=== PATIENT | female | born 1970 | race Caucasian/White ===

== ENCOUNTER 2021-06-02 15:16 | Outpatient (CLI) | payer OTHER | END 2021-06-02 15:36 | disposition home or self-care (01) | LOC: MAMO-SONO 15:16 | PROVIDERS: ATTEND Obstetrics & Gynecology | DX: N64.4 Mastodynia (principal) ==

== ENCOUNTER 2022-08-12 08:59 | Outpatient (CLI) | payer OTHER | END 2022-08-12 09:00 | disposition home or self-care (01) | LOC: MAMO-SONO 08:59 | PROVIDERS: ATTEND Obstetrics & Gynecology Gynecology | DX: Z12.31 Encounter for screening mammogram for malignant neoplasm of breast (principal); N64.9 Disorder of breast, unspecified; N64.4 Mastodynia; R10.2 Pelvic and perineal pain ==